=== PATIENT | female | born 1995 | race Caucasian/White ===

== ENCOUNTER → 2018-05-17 | Outpatient (CLI) | payer BC ==
[~2018-05-17] MED LIST: CEPH500 PO; FAMO20 PO; IBUP800 PO; OXYACE5T PO; PRED10 PO
[2018-05-19 15:08] LABS: HPV 16 Negative (Negative); HPV 18 Negative (Negative); HPV OTHER HR TYPES Negative (Negative)
== END | disposition home or self-care (01) ==
LOC: LAB SHORT 16:47 → LAB 16:47
PROVIDERS: Obstetrics & Gynecology
DX: Z01.419 Encounter for gynecological examination (general) (routine) without abnormal findings (principal)
CPT/HCPCS: 87624; G0123

== ENCOUNTER 2023-02-16 20:58 | Emergency (ER) | payer BC ==
[~2023-02-16] VITALS: Ht 165.1 cm; Wt 86.6 kg
[2023-02-16 21:27] VITALS: BP 131/93
[2023-02-16] MEDS ORDERED: CRUTCH2 XX (22:50)
== END 2023-02-16 23:27 | disposition home or self-care (01) ==
LOC: ER 20:58
DX: S82.61XA Displaced fracture of lateral malleolus of right fibula, initial encounter for closed fracture (principal); X50.1XXA Overexertion from prolonged static or awkward postures, initial encounter; Y93.68 Activity, volleyball (beach) (court); F17.200 Nicotine dependence, unspecified, uncomplicated
CPT/HCPCS: 29515; 73600; 99283-25

== ENCOUNTER 2023-02-25 12:36 | Day surgery (SDC) | payer BC ==
[~2023-02-25] VITALS: Ht 139.7 cm; Wt 88.1 kg
[~2023-02-25 12:36] MED LIST changes: +CRUTCH2 XX
[2023-02-25] MEDS ORDERED: HYDR1TAB94 PO (13:08)
--- NOTE | 2023-02-25 14:19 | NUR ---
02/25/23 1418 Josseline Montilla POPITEAL BLOCK COMPLETE IN OR BY DR TROTTER. TIME OUT COMPLETE/SITE CHECK. PT TOLERATED WELL, VSS.
--- NOTE | 2023-02-25 15:14 | NUR ---
02/25/23 1514 JUDY SIDDIQUI TRIAL OFF O2. CURRENTLY 100% ON 5L
--- NOTE | 2023-02-25 15:35 | NUR ---
02/25/23 1535 JUDY SIDDIQUI PT AWAKE AND TALKING. DOING WELL.
[2023-02-25 16:19] VITALS: BP 111/65
== END 2023-02-25 16:40 | disposition home or self-care (01) ==
LOC: ORSCSDS 12:36
PROVIDERS: Podiatrist Foot & Ankle Surgery
PROC: 0QSJ04Z Reposition Right Fibula with Internal Fixation Device, Open Approach (ICD-10-PCS; principal; 2023-02-25 14:00)
DX: S82.61XA Displaced fracture of lateral malleolus of right fibula, initial encounter for closed fracture (principal); X58.XXXA Exposure to other specified factors, initial encounter; Y93.68 Activity, volleyball (beach) (court); F17.210 Nicotine dependence, cigarettes, uncomplicated
CPT/HCPCS: A9270; C1713; J0690; J1100; J1885; J2250; J2405; J2704; J3010; J7120